=== PATIENT | female | born 1995 | race Caucasian/White ===

== ENCOUNTER → 2018-08-09 | Outpatient (CLI) | payer BC ==
--- NOTE | 2018-08-09 17:57 | Diagnostic Imaging Report ---
INDICATION: Right wrist pain. TIME OF EXAM: 5:28 p.m. TECHNIQUE: Three views of right wrist were obtained. FINDINGS: Distal radius and ulna are intact. Carpus and metacarpals appear to be intact. No fractures are seen. IMPRESSION: No acute bony abnormality is detected. Dictated by: Dictated on workstation # [id number]
== END ==
LOC: RAD FS 17:35
PROVIDERS: ATTEND Nurse Practitioner Family
DX: M25.531 Pain in right wrist (principal); M79.641 Pain in right hand
CPT/HCPCS: 73110

== ENCOUNTER 2019-04-13 21:23 | Emergency (ER) | payer BC ==
[~2019-04-13] VITALS: Ht 172.7 cm; Wt 117.5 kg
--- NOTE | 2019-04-13 21:57 | ED Upper Extremity ---
General Chief Complaint: Bite-Animal/Human/Insect Stated Complaint: DOG BITE ON ABD AND HAND Source: patient Exam Limitations: no limitations History of Present Illness Date Seen by Provider: Apr 13, 2019 Time Seen by Provider: 21:30 Initial Comments The patient is a pleasant 23-year-old female who presents for evaluation of dog bites to the left hand and left abdomen. She states that she was walking her dogs when an unknown dog started barking at her daughter's the dogs began to fight. She states that she and her tried to pull the dogs apart and she was bitten by she believes the unknown dog on the left hand and left side of her abdomen. She is unsure of her tetanus status this will need to be updated today. She states the other dog was not wearing a collar and it was unknown to her and there was no diet attendant around so the animal will not be able to be observed. She is alert and oriented 4, calm, and appears to be in no distress this time. Onset: just prior to arrival Pain/Injury Location: left hand, left thumb Method of Injury: other (dog bite) Modifying Factors: Improves With Movement (makes it worse) Allergies and Home Medications Allergies Coded Allergies: No Known Drug Allergies (Unverified , 04/13/19) Home Medications Amoxicillin/Potassium Clav 1 Each Tablet, 1 EACH PO BID Prescribed by: KATIE BARNETT on 04/13/192220 Patient Home Medication List Home Medication List Reviewed: Yes Review of Systems Constitutional: no symptoms reported EENTM: no symptoms reported Respiratory: no symptoms reported Cardiovascular: no symptoms reported Gastrointestinal: no symptoms reported Genitourinary: no symptoms reported Musculoskeletal: no symptoms reported Skin: no symptoms reported, other (dog bites to left hand and left side of abdomen) Psychiatric/Neurological: No Symptoms Reported All Other Systems Reviewed Negative Unless Noted: Yes Past Iylpeng-Docqjy-Izuekk Hx Past Med/Social Hx: Reviewed Nursing Past Med/Soc Hx Patient Social History Recent Foreign Travel: No Contact w/Someone Who Travel: No Physical Abuse: No Sexual Abuse: No Fear: No Physical Exam Vital Signs Vital Signs - First Documented 04/13/19 21:44 Temp 36.6 Pulse 102 Resp 20 B/P (MAP) 154/107 (123) O2 Delivery Room Air Capillary Refill : Height, Weight, BMI Height: '" Weight: lbs. oz. kg; BMI Method: General Appearance: WD/WN, no apparent distress HEENT: PERRL/EOMI, normal ENT inspection Cardiovascular: regular rate, rhythm, no edema, no JVD Respiratory: chest non-tender, lungs clear, normal breath sounds, no respiratory distress Gastrointestinal: normal bowel sounds, non tender, soft, other (superficial bites to left lower lateral abdomen, no wound dehiscence, no bleeding) Back: normal inspection Shoulder: normal inspection, non-tender, no evidence of injury, normal ROM Elbow/Forearm: normal inspection, non-tender, no evidence of injury, normal ROM Wrist: Yes normal inspection, Yes non-tender, Yes no evidence of injury, Yes normal ROM Hand: laceration (small laceration to the dorsal surface of the left proximal mid hand, 0.5 cm, not bleeding, superficial, there is a superficial puncture wound to the tip of the thumb without active bleeding, there is some tenderness to the thumb and some slight bruising) 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, no motor/sensory deficits, alert, normal mood/affect, oriented x 3 Skin: normal color, warm/dry Procedures/Interventions Wound Location: Upper Extremities Other Wound Location left dorsal hand Wound Length (cm): 0.5 Wound's Depth, Shape: superficial Wound Explored: clean Irrigated w/ Saline (ccs): 200 Other Closure Supply: Steri Strip 1/2", Wound Adhesive Sterile Dressing Applied?: No Progress Patient tolerated the repair well with Dermabond and a Steri-Strip Progress/Results/Core Measures Results/Orders My Orders Orders - KATIE BARNETT DO Dipht,Pertjohn(Acell),Tet Adult (Boostrix (04/13/19 22:00) Finger(S) (04/13/19 21:48) Rabies Immune Globulin/Pf Inj (Hyperrab (04/13/19 22:00) Rabies Vaccine Human Dipl Cell (Rabavert (04/13/19 22:00) Medications Given in ED Current Medications Medications Dose Ordered Sig/Clint Route Start Time Stop Time Status Last Admin Dose Admin Diphtheria/ Tetanus/Acell Pertussis 0.5 ml ONCE ONCE IM 04/13/19 22:00 04/13/19 22:01 DC 04/13/19 22:15 0.5 ML Rabies Immune Globulin 2,350 unit ONCE ONCE IM 04/13/19 22:00 04/13/19 22:01 DC 04/13/19 22:16 2,350 UNIT Rabies Vaccine Human Diploid Cell 1 ml ONCE ONCE IM 04/13/19 22:00 04/13/19 22:01 DC 04/13/19 22:17 1 ML Vital Signs/I&O 04/13/19 21:44 Temp 36.6 Pulse 102 Resp 20 B/P (MAP) 154/107 (123) O2 Delivery Room Air Progress Progress Note : Progress Note @2230 - As the dog which bit the patient's hand is unknown to her and its location is unknown the patient has been given the first dose of the rabies vaccine and rabies immunoglobulin. She will need to return for additional vaccines on days 3, 7, and 14. X-rays is unremarkable. Advise follow-up with PCP in the next 1-2 days. chief legal officer was in the emergency department speaking with the patient. Advised return to the emergency Department immediately for new or worsening symptoms. The patient expresses verbal understanding and agreement with the plan and is stable for discharge. Diagnostic Imaging Diagonstic Imaging: Xray Departure Impression Primary Impression: Dog bite Additional Impressions: Laceration of left hand Open wound of abdominal wall due to dog bite Disposition: HOME, SELF-CARE Condition: Stable Departure-Patient Inst. Decision time for Depature: 22:27 Referrals: KARUNA WHYTE APRN (PCP) Primary Care Physician Patient Instructions: Animal Bites (DC), Laceration Repair With Glue (DC), Wound Care Add. Discharge Instructions: You given the first dose of the rabies vaccine and immunoglobulin today in the emergency department. Today is day 0. You will need to return for rabies vaccines on days 3, 7, and 14. Keep the wound clean and dry. Take the prescribed antibiotics as directed. Return to the emergency Department immediately for new or worsening symptoms. Scripts Amoxicillin/Potassium Clav (Augmentin 875-125 Tablet) 1 Each Tablet 1 EACH PO BID for 10 Days, #20 TAB 0 Refills Prov: KATIE BARNETT DO 04/13/19 KATIE BARNETT DO Apr 13, 2019 21:48
[2019-04-13] MEDS ORDERED: RABIES IMMUNE GLOBULIN 300 UNIT/ML 5 ML (HyperRAB) IM ONE (22:00)
[2019-04-13] MEDS ORDERED: RABIES VACCINE HUMAN DIPL CELL 1 ML/2.5 UNITS SYR IM ONE (22:00)
[2019-04-13] MEDS ORDERED: TETANUS,DIPTH,PERTUSS P/F (BOOSTRIX) 0.5 ML VIAL IM ONE (22:00)
[2019-04-13] MEDS ORDERED: AMOX-358 PO (22:21)
[2019-04-13 23:08] VITALS: BP 129/69
--- NOTE | 2019-04-14 07:30 | Diagnostic Imaging Report ---
Indication: Dog bite. Findings: 3 views of the left thumb show no fracture, dislocation, retained opaque foreign body or soft tissue gas. Impression: No retained opaque foreign body or fracture demonstrated. Dictated by: Dictated on workstation # [id number]
--- OUTSIDE RECORDS SUMMARY | 2019-04-18 01:17 | XMS REPORT ---
Author Didi Lee Organization [facility] Address [address] [place] [address] Care Team Providers Care News Producer Name Role Phone ADELAIDA SHAVER Unavailable PROBLEMS Unknown Problems ALLERGIES No Known Allergies ENCOUNTERS Encounter Location Date Diagnosis [facility] [address] [facility] [id number], [place] [address] Feb, Nasopharyngitis [facility] [address] [facility] [id number] [address], [place] [address] Aug, IMMUNIZATIONS No Known Immunizations SOCIAL HISTORY Never Assessed REASON FOR VISIT flu symptoms Pt c/o L ear pain along with body aches, fever and cough since yes terday STAN Yanes PLAN OF CARE Activity Details Follow Up prn Reason: VITAL SIGNS Weight 222.4 lbs 2017-03-10 Temperature 99.4 degrees Fahrenheit 2017-03-10 Heart Rate 92 bpm 2017-03-10 Respiratory Rate 20 2017-03-10 Blood pressure systolic 104 mmHg 2017-03-10 Blood pressure diastolic 68 mmHg 2017-03-10 MEDICATIONS No Known Medications RESULTS No Results PROCEDURES No Known procedures INSTRUCTIONS MEDICATIONS ADMINISTERED No Known Medications
--- OUTSIDE RECORDS SUMMARY | 2019-04-18 01:17 | XMS REPORT | Continuity of Care Document ---
Author Organization Unknown Address Unknown Phone Unavailable Allergies Active Description Code Type Severity Reaction Onset Reported/Identified Relationship to Patient Clinical Status Yes No Known Drug Allergies [id number] Drug Allergy Unknown N/A 04/13/2019 Medications There is no data. Problems Date Dx Coded Attending Type Code Diagnosis Diagnosed By 08/10/2018 BERNICE WHYTE Ot M25.53 1 PAIN IN RIGHT WRIST 08/10/2018 BERNICE WHYTE Ot M79.64 1 PAIN IN RIGHT HAND 04/13/2019 BERNICE WHYTE Ot M25.53 1 PAIN IN RIGHT WRIST 04/13/2019 BERNICE WHYTE Ot M79.64 1 PAIN IN RIGHT HAND Procedures There is no data. Results There is no data. Encounters ACCT No. Visit Date/Time Discharge Status Pt. Type Provider Facility Loc./Unit Complaint [id number] 08/09/2018 16:40:00 08/09/2018 23:59:5 9 [facility] Outpatient SANDY MELVIN [facility] [id number] 04/13/2019 21:25:00 020 23:08:00 DIS Emergency ANIBAL WILSON DO Via [facility] ER FS DOG BITE ON ABD AND DILL D [id number] 08/09/2018 17:35:00 019 23:59:59 CLS Outpatient BERNICE WHYTE Via [facility] RAD FS RIGHT HAND PAIN
== END 2019-04-13 23:08 | disposition home or self-care (01) ==
LOC: EDUNIT# 21:23 → ER FS 21:25
DX: S61.412A Laceration without foreign body of left hand, initial encounter (principal); S31.154A Open bite of abdominal wall, left lower quadrant without penetration into peritoneal cavity, initial encounter; S61.032A Puncture wound without foreign body of left thumb without damage to nail, initial encounter; Z23 Encounter for immunization; W54.0XXA Bitten by dog, initial encounter
CPT/HCPCS: 73140; 90375; 90675; 90715

== ENCOUNTER → 2019-12-25 | Outpatient (CLI) | payer BC ==
[~2019-12-25] MED LIST: AMOX-358 PO
--- NOTE | 2019-12-25 16:04 | Diagnostic Imaging Report ---
INDICATION: Amenorrhea. TECHNIQUE: Complete transabdominal and transvaginal pelvic sonography was performed. In addition, limited pelvic Doppler was performed. FINDINGS: The uterus is anteverted measuring 6.8 x 3.6 x 5.1 cm. The endometrium is 4 mm in thickness. No myometrial mass is detected. The right ovary measures 3.8 x 2.0 x 2.1 cm and the left ovary measures 2.7 x 1.7 x 1.9 cm. The ovaries contain small follicles. There is blood flow to both ovaries. The cervix does show some heterogeneity but no discrete mass is detected. IMPRESSION: Cervical heterogeneity without discrete mass. The study is otherwise unremarkable. Dictated by: Dictated on workstation # [id number]
== END ==
LOC: RAD 15:01
PROVIDERS: ATTEND Obstetrics & Gynecology
DX: N91.2 Amenorrhea, unspecified (principal); N88.8 Other specified noninflammatory disorders of cervix uteri; R51.9 Headache, unspecified
CPT/HCPCS: 36415; 76830; 76856; 84145; 84702

== ENCOUNTER → 2020-02-08 | Outpatient (CLI) | payer BC | LOC: LAB FS 13:06 | PROVIDERS: ATTEND Obstetrics & Gynecology | DX: N91.2 Amenorrhea, unspecified (principal) | CPT/HCPCS: 36415; 84146 ==

== ENCOUNTER → 2022-01-13 | Outpatient (CLI) | payer BC, MEDICAID, OTHER ==
--- NOTE | 2022-01-13 12:46 | Diagnostic Imaging Report ---
INDICATION: Supervision of normal . Anatomy scan. TECHNIQUE: Multiple real-time grayscale images were obtained over the gravid uterus. COMPARISON: None FINDINGS: A single live intrauterine gestation is visualized in cephalic presentation. heart tones measure 152 bpm. The placenta is anterior and not low lying. The CARISSA is normal measuring 11.2 cm. The cervix is closed measuring 4.9 cm in length. The kidneys, bladder, stomach, brain, four-chamber heart, three-vessel cord, spine, and cord insertion are visualized and have a normal appearance. Views of the adnexa are unremarkable. No evidence of adnexal mass or free fluid. Biometrical measurements are as follows: Biparietal 5.18 cm, age 21 weeks 5 days. Head circumference 18.98 cm, age 21 weeks 2 days. Abdominal circumference 16.65 cm, age 21 weeks 5 days. Femur length 3.83 cm, age 22 weeks 2 days. Sonographic estimate age: 21 weeks 6 days. Sonographic estimated date of delivery: 05/20/2022. Estimated Weight: 457 gm (+/- 67 gm). LMP percentile: 87%. heart rate: 152 beats per minute. number: 1 of 1. IMPRESSION: 1. Single live intrauterine gestation measuring 20 weeks 6 days and estimated due date of 05/20/2022. These are within range with the clinical dates. Recommend continued follow-up. 2. Unremarkable anatomy scan without abnormality. Dictated by: Dictated on workstation # [id number]
== END ==
LOC: RAD FS 07:45
PROVIDERS: ATTEND Obstetrics & Gynecology
DX: Z34.82 Encounter for supervision of other normal pregnancy, second trimester (principal); Z3A.20 20 weeks gestation of pregnancy
CPT/HCPCS: 76805

== ENCOUNTER → 2022-02-24 | Outpatient (CLI) | payer BC, MEDICAID ==
--- NOTE | 2022-02-25 11:24 | Diagnostic Imaging Report ---
INDICATION: Large for dates, fundal height high. Evaluate growth and biophysical profile score. TECHNIQUE: Multiple real-time grayscale images were obtained over the gravid uterus. COMPARISON: 01/13/2022 FINDINGS: There is a single live intrauterine gestation in transverse presentation, with head to maternal right. The cervix measures 4.8 cm in length and there is no evidence of funneling or endocervical fluid. The placenta is anterior without previa. The heart rate measures 132 BPM. Measurements are given below. The amniotic fluid index is 18.3 cm. Anatomic survey is not performed at this time. The biophysical profile score is 8 out of 8. Biometrical measurements are as follows: Biparietal 7.05 cm, age 28 weeks 3 days. Head circumference 23.16 cm, age 28 weeks 4 days. Abdominal circumference 24.99 cm, age 29 weeks 2 days. Femur length 5.44 cm, age 28 weeks 6 days. Sonographic estimate age: 28 weeks 6 days. Sonographic estimated date of delivery: 05/13/2022. Estimated Weight: 1306 gm (+/- 191 gm). LMP percentile: 97%. heart rate: 132 beats per minute. number: 1 of 1. IMPRESSION: 1. Single live intrauterine gestation measuring at 28 weeks and 6 days which is within 2 weeks of the clinical dates. 2. Size is at the upper limit of normal, the 97th percentile. 3. The biophysical profile score is 8 out of 8. Dictated by: Dictated on workstation # [id number]
== END ==
LOC: RAD FS 15:04
PROVIDERS: ATTEND Obstetrics & Gynecology
DX: O34.593 Maternal care for other abnormalities of gravid uterus, third trimester (principal); Z3A.28 28 weeks gestation of pregnancy
CPT/HCPCS: 76805; 76819

== ENCOUNTER → 2022-03-10 | Outpatient (CLI) | payer BC, MEDICAID | LOC: LAB FS 08:09 | PROVIDERS: ATTEND Obstetrics & Gynecology | DX: O99.810 Abnormal glucose complicating pregnancy (principal); Z3A.00 Weeks of gestation of pregnancy not specified | CPT/HCPCS: 36415; 82951; 82952 ==

== ENCOUNTER 2022-05-13 05:55 | Inpatient (IN) | payer BC, MEDICAID ==
[~2022-05-13] VITALS: Ht 174 cm; Wt 122.0 kg
[2022-05-13] VITALS (74 sets, daily range): BP systolic 114–183; BP diastolic 71–107
[2022-05-13 07:08] LABS: BASOPHILS % (AUTO) 0 % (0-10); EOSINOPHILS # (AUTO) 0.1 10^3/uL (0.0-0.3); EOSINOPHILS % (AUTO) 1 % (0-10); HEMATOCRIT 32 % (35-52); HEMOGLOBIN 11.2 g/dL (11.5-16.0); LYMPHOCYTES # (AUTO) 1.7 10^3/uL (1.0-4.0); LYMPHOCYTES % (AUTO) 21 % (12-44); MEAN CORPUSCULAR HEMOGLOBIN 32 pg (25-34); MEAN CORPUSCULAR HGB CONC 35 g/dL (32-36); MEAN CORPUSCULAR VOLUME 91 fL (80-99); MEAN PLATELET VOLUME 11.9 fL (9.0-12.2); MONOCYTES # (AUTO) 0.5 10^3/uL (0.0-1.0); MONOCYTES % (AUTO) 7 % (0-12); NEUTROPHILS # (AUTO) 5.7 10^3/uL (1.8-7.8); NEUTROPHILS % (AUTO) 71 % (42-75); PLATELET COUNT 151 10^3/uL (130-400)
[2022-05-13 07:10] LABS: BILIRUBIN,URINE NEGATIVE (NEGATIVE); CLARITY,URINE CLOUDY; COLOR,URINE YELLOW; GLUCOSE, URINE (UA) NEGATIVE (NEGATIVE); KETONES,URINE NEGATIVE (NEGATIVE); LEUKOCYTE ESTERASE ,URINE 3+ (NEGATIVE); NITRITE,URINE NEGATIVE (NEGATIVE); PROTEIN,URINE TRACE (NEGATIVE)
[2022-05-13 07:18] LABS: BACTERIA,URINE MODERATE /HPF
--- NOTE | 2022-05-13 07:38 | History & Physical-OB ---
ALL AECVEDO 05/13/22 0738: OB - Chief Complaint & HPI Date/Time Date of Admission: Date of Admission: May 13, 2022 at 05:55 Date seen by a Provider: May 13, 2022 Time Seen by a Provider: 07:35 Chief Complaint/History OB-Reason for Admission/Chief: Induction of Labor Hx : 2 Hx Para: 1010 Expected Date of Delivery: May 26, 2022 Gestational Age in Weeks: 38 Gestational Age in Days: 1 Indication for induction: other (gestational diabetes) Allergies and Home Medications Allergies Coded Allergies: No Known Drug Allergies (Unverified , 04/13/19) Patient Home Medication List Home Medication List Reviewed: Yes Amoxicillin/Potassium Clav (Augmentin 875-125 Tablet) 1 Each Tablet, 1 EACH PO BID Prescribed by: KATIE BARNETT on 04/13/192220 OB - History Hx of Present Care: Yes Ultrasounds: Normal mid trimester US Obstetrical Complications: Gestational Diabetes Information Maternal Gestational Diabetes: Yes Obstetrical History Hx : 2 Hx Para: 1010 Hx # Term Pregnancies: 1 Number of Living Children: 0 Hx Total # of Abortions (Spona: 1 Hx Multiple Gestation: Yes Hx Maternal Gestational Diabet: Yes Social History/Family History 2nd Hand Smoke Exposure: No Immunizations Influenza Vaccine Up-to-Date: No; Not Current Hepatitis A: Yes Hepatitis B: Yes OB - Admission Exam Physical Exam Vitals: Vital Signs 05/13/22 05/13/22 06:00 07:01 Temp 36.4 Pulse 88 Resp 18 B/P (MAP) 144/91 (108) Pulse Ox 98 O2 Delivery Room Air HEENT: NCAT Heart: Rhythm Normal Lungs: Clear Abdomen: Non tender Extremities: Normal Cervical Dilatation: 3cm Membranes: Ruptured Amniotic Fluid: Clear Heart Rate: 150's Contractions on Admission: None Labs Laboratory Tests Test 05/13/22 06:00 05/13/22 07:00 Range/Units Urine Color YELLOW Urine Clarity CLOUDY Urine pH 6.0 5-9 Urine Specific [place] 1.025 H 1.016-1.022 Urine Protein TRACE H NEGATIVE Urine Glucose (UA) NEGATIVE NEGATIVE Urine Ketones NEGATIVE NEGATIVE Urine Nitrite NEGATIVE NEGATIVE Urine Bilirubin NEGATIVE NEGATIVE Urine Urobilinogen 0.2 < = 1.0 MG/DL Urine Leukocyte Esterase 3+ H NEGATIVE Urine RBC (Auto) NEGATIVE NEGATIVE Urine RBC NONE /HPF Urine WBC 10-25 H /HPF Urine Squamous Epithelial Cells 10-25 H /HPF Urine Crystals NONE /LPF Urine Bacteria MODERATE H /HPF Urine Casts NONE /LPF Urine Mucus SMALL H /LPF Urine Culture Indicated YES White Blood Count 8.0 4.3-11.0 10^3/uL Red Blood Count 3.47 L 3.80-5.11 10^6/uL Hemoglobin 11.2 L 11.5-16.0 g/dL Hematocrit 32 L 35-52 % Mean Corpuscular Volume 91 80-99 fL Mean Corpuscular Hemoglobin 32 25-34 pg Mean Corpuscular Hemoglobin Concent 35 32-36 g/dL Red Cell Distribution Width 11.8 10.0-14.5 % Platelet Count 151 130-400 10^3/uL Mean Platelet Volume 11.9 9.0-12.2 fL Immature Granulocyte % (Auto) 0 % Neutrophils (%) (Auto) 71 42-75 % Lymphocytes (%) (Auto) 21 12-44 % Monocytes (%) (Auto) 7 0-12 % Eosinophils (%) (Auto) 1 0-10 % Basophils (%) (Auto) 0 0-10 % Neutrophils # (Auto) 5.7 1.8-7.8 10^3/uL Lymphocytes # (Auto) 1.7 1.0-4.0 10^3/uL Monocytes # (Auto) 0.5 0.0-1.0 10^3/uL Eosinophils # (Auto) 0.1 0.0-0.3 10^3/uL Basophils # (Auto) 0.0 0.0-0.1 10^3/uL Immature Granulocyte # (Auto) 0.0 0.0-0.1 10^3/uL OB - Assessment/Plan/Diagnosis Assessment Assessment: induction of labor Admission Dx 26 y/o @ 38 weeks Gestational Diabetes Admission Status: Inpatient Order (span 2 midnights) Plan Plan: Induction Reason for Induction: gestational diabetes DANIAL GEORGE DO 05/13/22 0759: OB - Chief Complaint & HPI Chief Complaint/History Admission Nurse Assessment Rev: Yes History of Labs A neg Antibody neg RNI RPR NR HIV NR HBsAg NR GC neg GBS neg Allergies and Home Medications Allergies Coded Allergies: No Known Drug Allergies (Unverified , 04/13/19) Patient Home Medication List Home Medication List Reviewed: Yes Amoxicillin/Potassium Clav (Augmentin 875-125 Tablet) 1 Each Tablet, 1 EACH PO BID Prescribed by: KATIE BARNETT on 04/13/195 OB - History Patient Past Medical History nc OB - Assessment/Plan/Diagnosis Assessment Admission Dx 26 yo @ 38 weeks GDMA2- on glyburide GBS neg Reason for Inpatient Admission: IOL at 38 weeks Plan Plan: Induction Induction Method: AROM Other Plan Verification and Attestation of Medical Student E/M Service A medical student performed and documented this service in my presence. I reviewed and verified all information documented by the medical student and made modifications to such information, when appropriate. I personally performed the physical exam and medical decision making. Danial George, May 13, 2022,08:01 ALL ACEVEDO May 13, 2022 07:38 DANIAL GEORGE DO May 13, 2022 07:59
[2022-05-13] MEDS: D5 LR IV SOLUTION 1,000 ML IV SCH ×3 (07:39→23:59)
[2022-05-13] MEDS ORDERED: OXYTOCIN PRE-MIX DRIP 500 ML IV ONE (08:06)
[2022-05-13] MEDS ORDERED: OXYTOCIN PRE-MIX DRIP 500 ML IV SCH (08:15)
[2022-05-13] MEDS ORDERED: HYDROmorphone 2 MG/ML VIAL (DILAUDID) IV ONE (14:00)
[2022-05-13] MEDS ORDERED: LIDOCAINE 1% INJ 20 ML VIAL IJ PRN (15:00)
[2022-05-13] MEDS ORDERED: fentaNYL 2 mcg/ml BUPIVA 0.125 100 ML ONE (19:23)
[2022-05-13] MEDS ORDERED: BUPIVACAINE 0.25% 10 ML (SENSORCAINE) VIAL ONE (19:58)
[2022-05-13] MEDS ORDERED: fentaNYL INJ 100 MCG/2 ML AMP ONE (19:58)
[2022-05-13] MEDS ORDERED: NALOXONE 0.4 MG/ML 1 ML (NARCAN) VIAL IV PRN (20:30)
[2022-05-13] MEDS ORDERED: ONDANSETRON 4 MG/2 ML (SDV) Z0FRAN IV PRN (20:30)
[2022-05-13] MEDS ORDERED: fentaNYL INJ 100 MCG/2 ML AMP INJ ONE (20:30)
[2022-05-13] MEDS ORDERED: LACTATED RINGERS 1,000 ML IV ONE ×2 (20:30)
[2022-05-13] MEDS: fentaNYL 2 mcg/ml BUPIVA 0.125 100 ML EPI SCH (21:05)
[2022-05-13] MEDS: CATHETER FLUSH 10 ML SYR IV SCH ×2 (21:10→21:53)
[2022-05-14] VITALS (26 sets, daily range): BP systolic 126–179; BP diastolic 70–100
[2022-05-14] MEDS: fentaNYL 2 mcg/ml BUPIVA 0.125 100 ML EPI SCH (03:29)
[2022-05-14] MEDS ORDERED: ACETAMINOPHEN 500 MG TAB (TYLENOL) ONE (04:27)
[2022-05-14] MEDS ORDERED: ACETAMINOPHEN 500 MG TAB (TYLENOL) PO ONE (04:30)
[2022-05-14] MEDS ORDERED: NALOXONE 0.4 MG/ML 1 ML (NARCAN) VIAL IV PRN (05:15)
[2022-05-14] MEDS ORDERED: DIBUCAINE 1% OINTMENT 28 GM TUBE TOP PRN (05:15)
[2022-05-14] MEDS ORDERED: IBUPROFEN 600 MG (MOTRIN) TAB PO SCH (05:15)
[2022-05-14] MEDS ORDERED: TETANUS,DIPTH,PERTUSS P/F (BOOSTRIX) 0.5 ML VIAL IM ONE (05:15)
[2022-05-14] MEDS ORDERED: WITCH HAZEL(TUCKS) 40 EA JAR TOP PRN (05:15)
[2022-05-14] MEDS ORDERED: MEASLES,MUMPS,RUBELLA 1 EA INJ SQ ONE (05:15)
[2022-05-14] MEDS ORDERED: ACETAMINOPHEN 500 MG TAB (TYLENOL) PO SCH (05:15)
[2022-05-14] MEDS ORDERED: BENZOCAINE/MENTHOL (DERMOPLAST) 56 ML CAN TP PRN (05:15)
--- NOTE | 2022-05-14 05:17 | OB Labor & Delivery Record ---
L&D History Date of Service Date of Service: May 14, 2022 History Expected Date of Delivery: May 26, 2022 Gestational Age in Weeks: 37 Hx : 2 Hx Para: [id number] Complications Events: Routine care Operative Indications (Cesarea: N/A-Vaginal Delivery Intrapartal Events: None L&D Stage1 Stage One Onset of Labor - Date: May 14, 2022 Monitors and Tracing Monitor Mode: Internal Heart Rate: 145 Monitor Accelerations: Uniform Monitor Decelerations: Variable Station: 0 Fci Variability: Moderate (11-25) Short Term Variability: Present Presentation: Vertex Vital Signs VS - Last 72 Hours, by Label 05/13/22 05/13/22 05/13/22 05/13/22 06:00 07:01 07:30 07:34 Temp 36.4 36.9 Pulse 93 88 89 93 Resp 20 18 18 B/P (MAP) 144/91 (108) 158/92 (114) 150/90 (110) Pulse Ox 98 97 O2 Delivery Room Air Room Air Room Air Room Air 05/13/22 05/13/22 05/13/22 05/13/22 07:40 08:00 08:15 08:30 Pulse 83 84 85 82 Resp 18 18 18 B/P (MAP) 114/91 (99) 142/92 (109) 154/90 (111) 145/87 (106) O2 Delivery Room Air Room Air Room Air Room Air 05/13/22 05/13/22 05/13/22 05/13/22 08:45 09:00 09:15 09:30 Pulse 85 79 71 72 Resp 18 18 18 18 B/P (MAP) 141/89 (106) 147/90 (109) 134/92 (106) 154/94 (114) O2 Delivery Room Air Room Air Room Air Room Air 05/13/22 05/13/22 05/13/22 05/13/22 09:45 10:00 10:15 10:30 Pulse 73 70 72 70 Resp 18 18 18 18 B/P (MAP) 139/93 (108) 153/94 (113) 141/102 (115) 143/87 (105) O2 Delivery Room Air Room Air Room Air Room Air 05/13/22 05/13/22 05/13/22 05/13/22 10:45 11:00 11:15 11:30 Pulse 69 67 73 75 Resp 18 18 18 18 B/P (MAP) 145/94 (111) 157/95 (115) 157/101 (119) 177/100 (125) O2 Delivery Room Air Room Air Room Air Room Air 05/13/22 05/13/22 05/13/22 05/13/22 11:45 12:00 12:15 12:30 Temp 36.4 Pulse 71 67 77 69 Resp 18 18 18 18 B/P (MAP) 164/100 (121) 167/95 (119) 127/89 (102) 167/107 (127) O2 Delivery Room Air Room Air Room Air Room Air 05/13/22 05/13/22 05/13/22 05/13/22 12:45 13:00 13:15 13:30 Pulse 66 74 70 74 Resp 18 18 18 18 B/P (MAP) 168/105 (126) 167/104 (125) 177/100 (125) 161/105 (123) O2 Delivery Room Air Room Air Room Air Room Air 05/13/22 05/13/22 05/13/22 05/13/22 13:45 14:00 14:15 14:30 Temp 36.5 Pulse 73 68 71 74 Resp 18 18 18 18 B/P (MAP) 147/84 (105) 144/77 (99) 151/89 (109) 136/74 (94) O2 Delivery Room Air Room Air Room Air Room Air 05/13/22 05/13/22 05/13/22 05/13/22 14:45 15:00 15:15 15:30 Pulse 71 82 69 75 Resp 18 18 18 18 B/P (MAP) 155/83 (107) 149/87 (107) 153/81 (105) 146/91 (109) O2 Delivery Room Air Room Air Room Air Room Air 05/13/22 05/13/22 05/13/22 05/13/22 15:45 16:00 16:15 16:30 Temp 36.1 Pulse 64 76 76 86 Resp 18 18 18 18 B/P (MAP) 161/86 (111) 154/88 (110) 154/88 (110) 145/81 (102) O2 Delivery Room Air Room Air Room Air Room Air 05/13/22 05/13/22 05/13/22 05/13/22 16:45 17:00 17:15 17:30 Pulse 73 75 85 86 Resp 18 18 18 18 B/P (MAP) 159/73 (101) 163/91 (115) 145/92 (109) 151/100 (117) O2 Delivery Room Air Room Air Room Air Room Air 05/13/22 05/13/22 05/13/22 05/13/22 17:45 18:00 18:15 18:30 Pulse 81 93 75 81 Resp 18 18 18 18 B/P (MAP) 150/99 (116) 183/96 (125) 143/102 (116) 162/94 (116) O2 Delivery Room Air Room Air Room Air Room Air 05/13/22 05/13/22 05/13/22 05/13/22 18:45 19:00 19:30 20:02 Temp 36.2 36.7 Pulse 95 83 75 82 Resp 18 18 18 17 B/P (MAP) 156/99 (118) 166/102 (123) 144/89 (107) 140/88 (105) Pulse Ox 99 O2 Delivery Room Air Room Air Room Air Room Air 05/13/22 05/13/22 05/13/22 05/13/22 20:07 20:12 20:15 20:17 Pulse 83 67 77 74 Resp 17 17 17 17 B/P (MAP) 170/94 (119) 168/93 (118) 166/99 (121) 156/83 (107) Pulse Ox 99 97 97 98 O2 Delivery Room Air Room Air Room Air Room Air 05/13/22 05/13/22 05/13/22 05/13/22 20:19 20:25 20:30 20:35 Pulse 80 86 80 86 Resp 17 17 17 17 B/P (MAP) 143/89 (107) 168/88 (114) 145/94 (111) 140/95 (110) Pulse Ox 98 98 98 98 O2 Delivery Room Air Room Air Room Air Room Air 05/13/22 05/13/22 05/13/22 05/13/22 20:40 20:48 20:59 21:09 Temp 36.5 Pulse 85 82 68 70 Resp 17 17 17 16 B/P (MAP) 144/95 (111) 138/91 (107) 142/88 (106) 141/83 (102) Pulse Ox 98 98 98 100 O2 Delivery Room Air Room Air Room Air Room Air 05/13/22 05/13/22 05/13/22 05/13/22 21:30 21:45 22:00 22:15 Pulse 71 73 80 80 Resp 17 17 17 17 B/P (MAP) 143/89 (107) 136/85 (102) 143/95 (111) 143/95 (111) Pulse Ox 100 100 97 97 O2 Delivery Room Air Room Air Room Air Room Air 05/13/22 05/13/22 05/13/22 05/13/22 22:30 22:45 23:00 23:15 Pulse 71 71 79 71 Resp 17 17 16 16 B/P (MAP) 132/78 (96) 135/83 (100) 128/71 (90) 129/76 (93) Pulse Ox 97 97 98 98 O2 Delivery Room Air Room Air Room Air Room Air 05/13/22 05/13/22 05/14/22 05/14/22 23:30 23:45 00:00 00:15 Pulse 71 78 76 76 Resp 16 16 16 16 B/P (MAP) 129/76 (93) 132/75 (94) 139/91 (107) 139/91 (107) Pulse Ox 98 98 98 98 O2 Delivery Room Air Room Air Room Air Room Air 05/14/22 05/14/22 05/14/22 05/14/22 00:30 00:45 01:00 01:15 Pulse 73 75 75 65 Resp 16 16 16 16 B/P (MAP) 138/84 (102) 127/77 (94) 127/77 (94) 126/73 (90) Pulse Ox 98 99 99 100 O2 Delivery Room Air Room Air Room Air Room Air 05/14/22 05/14/22 05/14/22 05/14/22 01:30 01:45 02:00 02:15 Temp 36.7 Pulse 65 65 93 93 Resp 16 16 16 16 B/P (MAP) 126/73 (90) 133/84 (100) 136/95 (109) 156/100 (118) Pulse Ox 100 100 100 100 O2 Delivery Room Air Room Air Room Air Room Air 05/14/22 02:31 Pulse 73 Resp 16 B/P (MAP) 179/95 (123) O2 Delivery Room Air Signs of Distress by FHT Signs of Distress variable heart decelerations intermittently with position changes Rupture of Membranes Spontaneous Ruture of Membrane: No Amniotic Membrane Rupture Time: 0750 Amniotic Membrane Fluid Desc.: Clear Vaginal Bleeding Description: Normal Show Induction/Anesthesia Epidural Cath Placement - Time: 2010 Progress/Notes Patient admitted for medical IOL due to GDMA2 on glyburide. She had AROM performed and pitocin augmentation administered, she slowly progressed through the day receiving one dose of dilaudid IV advancing to 6 cm dilatation. She then requested an epidural and had this placed. She continued to slowly progress to complete and + 2 station. L&D Stage2 Stage Two Stage II Date: May 14, 2022 Monitors and Tracing Monitor Mode: Internal Heart Rate: 145 Monitor Accelerations: None Monitor Decelerations: Variable Fci Variability: Average (6-10) Short Term Variability: Present Position: Right Occiput Anterior Presentation: Vertex Cord Descript/Complications Cord Vessel Description: 3 Vessels Complications nuchal cord reduced x 1 Delivery Type Delivery Method: Spontaneous Vaginal Anterior Shoulder: Right Episiotomy/Perineal Laceration Laceraction(s)/Extensions: Yes Episiotomy Description: Periurethral Extnsion/lac, 1st degree Degree (describe repair) repair of periurethral laceration using 3-0 rapide vicryl in usual fashion. Condition of Infant Delivery 1 minute Comment: 9 5 minute Comment: 9 Notes Live female weight pending Condition of Condition of Infant: Living Exam: No Observed Abnormalities Resuscitation Resuscitation: N/A - Spontaneous Resp L&D Stage3 Stage Three Stage III Date: May 14, 2022 Pictocin Pitocin Administration mu/min: 18 Pitocin ml/hr: 18 Pitocin Administration Comment: 30 pitocin wide open started after delivery of placenta Placenta Delivery Placenta Delivery: Spontaneous Delivery Summary Summary Estimated blood loss (mL): 350 Attending at delivery: Karuna George DO Condition of Delivery Examined: Cervix Examined, Uterus Explored Post Hemorrhage: No Condition of Mother stable Condition of (s) stable KARUNA GEORGE DO May 14, 2022 05:17
--- NOTE | 2022-05-14 05:18 | Discharge Inst-Women's Service ---
Discharge Inst-Women's Serv Depart Medication/Instructions New, Converted or Re-Newed RX: Transmitted to Pharmacy Final Diagnosis PPD 1 NVD Problems Reviewed?: Yes Consults/Follow Up Additional Follow Up: Yes Orders/Referrals Dr. George in 6 weeks Activity Activity: Activity as Tolerated Driving Instructions: No Driving for 1 Week NO SMOKING: NO SMOKING Nothing Inside Vagina: No Douching, No [place], No Tampons Diet Discharge Diet: No Restrictions Symptoms to Report to : Bleeding Excessive, Pain Increased, Fever Over 101 Degrees F, Vaginal Bleeding Increase, Questions/Concerns For Any Problems or Questions: Contact Your Physician KARUNA GEORGE DO May 14, 2022 05:18
[2022-05-14] MEDS: OXYTOCIN PRE-MIX DRIP 500 ML IV SCH ×2 (05:39→06:38)
[2022-05-14] MEDS ORDERED: CATHETER FLUSH 10 ML SYR IV SCH (06:00)
[2022-05-14] MEDS: D5 LR IV SOLUTION 1,000 ML IV SCH (06:39)
[2022-05-14] MEDS: CATHETER FLUSH 10 ML SYR IV SCH ×2 (06:39→17:19)
[2022-05-14] MEDS: FERROUS SULF 325 MG (IRON) TAB PO SCH (08:01)
[2022-05-14] MEDS: DOCUSATE SODIUM 100 MG (COLACE) CAP PO SCH ×2 (08:01→20:52)
[2022-05-14] MEDS: PRENATAL VITAMIN 1 EA TAB PO SCH (08:01)
--- NOTE | 2022-05-14 08:10 | Anesthesia-Regional Post-Op ---
Regional Patient Condition Mental Status: Alert, Oriented x3 Circulation: Same as Pre-Op Headache: Absent Sensation: Full Recovery Motor Block: Absent Post Op Complications Complications None Follow Up Care/Instructions Patient Instructions None needed. Anesthesia/Patient Condition Patient is doing well, no complaints, stable vital signs, no apparent adverse anesthesia problems. No complications reported per nursing. ARMANDO DRAKE CRNA May 14, 2022 08:10
[2022-05-14] MEDS: ACETAMINOPHEN 500 MG TAB (TYLENOL) PO SCH ×3 (11:46→23:05)
[2022-05-14] MEDS: IBUPROFEN 600 MG (MOTRIN) TAB PO SCH ×2 (13:54→20:52)
[2022-05-14] MEDS ORDERED: MEASLES,MUMPS,RUBELLA 1 EA INJ ONE (14:01)
[2022-05-15 02:39] VITALS: BP 124/78
[2022-05-15] MEDS: IBUPROFEN 600 MG (MOTRIN) TAB PO SCH ×2 (02:40→08:19)
[2022-05-15] MEDS: ACETAMINOPHEN 500 MG TAB (TYLENOL) PO SCH ×2 (05:07→12:06)
[2022-05-15 05:57] LABS: HEMOGLOBIN 9.9 g/dL (11.5-16.0)
[2022-05-15 06:00] LABS: BASOPHILS % (AUTO) 0 % (0-10); EOSINOPHILS # (AUTO) 0.2 10^3/uL (0.0-0.3); EOSINOPHILS % (AUTO) 1 % (0-10); HEMATOCRIT 28 % (35-52); LYMPHOCYTES # (AUTO) 2.1 10^3/uL (1.0-4.0); LYMPHOCYTES % (AUTO) 16 % (12-44); MEAN CORPUSCULAR HEMOGLOBIN 33 pg (25-34); MEAN CORPUSCULAR HGB CONC 35 g/dL (32-36); MEAN CORPUSCULAR VOLUME 93 fL (80-99); MEAN PLATELET VOLUME 12.1 fL (9.0-12.2); MONOCYTES # (AUTO) 0.8 10^3/uL (0.0-1.0); MONOCYTES % (AUTO) 6 % (0-12); NEUTROPHILS # (AUTO) 9.9 10^3/uL (1.8-7.8); NEUTROPHILS % (AUTO) 76 % (42-75); PLATELET COUNT 125 10^3/uL (130-400); WHITE BLOOD COUNT 13.2 10^3/uL (4.3-11.0)
--- NOTE | 2022-05-15 08:16 | Postpartum Progress Note ---
Note Note Day # 1 Subjective: Patient is without complaints. Ambulating, voiding. Tolerating a regular diet without nausea or vomiting. Normal lochia. Pain is well controlled with oral pain medications. Objective: Physical Exam: General - Alert and oriented, no apparent distress Abdomen - Soft, appropriately tender to palpation, non-distended, fundus firm at umbilicus Extremities - +1 edema, negative Chidi's bilaterally Assessment: PPD 1 NVD GDMA-1 BS control labile Acute blood loss anemia Plan: Routine care. Encourage breast feeding. Encourage ambulation. Ferrous sulfate supplementation. Plan for discharge today Vitals - Labs Vital Signs - I&O Vital Signs Date Time Temp Pulse Resp B/P (MAP) Pulse Ox O2 Delivery O2 Flow Rate FiO2 05/15/22 02:39 36.2 85 18 124/78 (93) 97 Room Air 05/14/22 23:05 36.3 75 18 137/86 (103) 96 Room Air 05/14/22 20:51 36.4 85 18 136/89 (105) 98 Room Air 05/14/22 16:00 36.3 81 18 132/88 (103) 99 Room Air 05/14/22 12:43 36.0 74 18 144/87 (106) 97 Room Air Labs Laboratory Tests 05/14/22 13:56: Glucometer 138H 05/14/22 20:46: Glucometer 119H 05/15/22 05:37: White Blood Count 13.2H, Red Blood Count 3.05L, Hemoglobin 9.9L, Hematocrit 28L, Mean Corpuscular Volume 93, Mean Corpuscular Hemoglobin 33, Mean Corpuscular Hemoglobin Concent 35, Red Cell Distribution Width 11.9, Platelet Count 125L, Mean Platelet Volume 12.1, Immature Granulocyte % (Auto) 1, Neutrophils (%) (Auto) 76H, Lymphocytes (%) (Auto) 16, Monocytes (%) (Auto) 6, Eosinophils (%) (Auto) 1, Basophils (%) (Auto) 0, Neutrophils # (Auto) 9.9H, Lymphocytes # (Auto) 2.1, Monocytes # (Auto) 0.8, Eosinophils # (Auto) 0.2, Basophils # (Auto) 0.0, Immature Granulocyte # (Auto) 0.1, Percent Immature Platelet Fraction 7.3, Glucose Level 72 Microbiology 05/13/22 Urine Culture - Final, Complete 3 or more isolates KARUNA GEORGE DO May 15, 2022 08:15
[2022-05-15 08:17] VITALS: BP 120/72
[2022-05-15] MEDS ORDERED: DOCU100C37 PO (08:17)
[2022-05-15] MEDS ORDERED: IBUP-844 PO (08:17)
[2022-05-15] MEDS ORDERED: PNV1TABL67 PO (08:17)
[2022-05-15] MEDS ORDERED: FERR325T24 PO (08:17)
[2022-05-15] MEDS ORDERED: DIBU30OI TOP (08:17)
[2022-05-15] MEDS ORDERED: ACET-93 PO (08:17)
[2022-05-15] MEDS ORDERED: BENZ78AE5 TP (08:17)
[2022-05-15] MEDS ORDERED: GLBR2.5T PO (08:17)
[2022-05-15] MEDS: FERROUS SULF 325 MG (IRON) TAB PO SCH (08:19)
[2022-05-15] MEDS: DOCUSATE SODIUM 100 MG (COLACE) CAP PO SCH (08:19)
[2022-05-15] MEDS: PRENATAL VITAMIN 1 EA TAB PO SCH (08:19)
== END 2022-05-15 13:40 | disposition home or self-care (01) | DRG 806 ==
LOC: LDRP 05:55
PROVIDERS: ADMIT Obstetrics & Gynecology; ATTEND Obstetrics & Gynecology
PROC: 10E0XZZ Delivery of Products of Conception, External Approach (ICD-10-PCS; principal; 2022-05-14)
PROC: 10907ZC Drainage of Amniotic Fluid, Therapeutic from Products of Conception, Via Natural or Artificial Opening (ICD-10-PCS; 2022-05-14)
PROC: 0HQ9XZZ Repair Perineum Skin, External Approach (ICD-10-PCS; 2022-05-14)
DX: O24.429 Gestational diabetes mellitus in childbirth, unspecified control (principal); D62 Acute posthemorrhagic anemia; Z37.0 Single live birth; Z3A.38 38 weeks gestation of pregnancy; O90.81 Anemia of the puerperium; O70.0 First degree perineal laceration during delivery
CPT/HCPCS: 36415; 81000; 82947; 83033; 85025; 86780; 86850; 86900; 86901; 87088; 90707